=== PATIENT | male | born 1980 | race Caucasian/White ===

== ENCOUNTER 2016-11-08 20:46 | Emergency (ER) | payer OTHER ==
[~2016-11-08] VITALS: Ht 170.2 cm; Wt 72.6 kg
[2016-11-08 21:31] LABS: ABSOLUTE BASOPHIL COUNT 0.1 /CUMM (0.0-0.2); ABSOLUTE EOSINOPHIL COUNT 0.3 /CUMM (0.0-0.7); ABSOLUTE GRANULOCYTE CT 10.7 /CUMM (1.4-6.5); ABSOLUTE LYMPH COUNT 1.4 /CUMM (1.2-3.4); ABSOLUTE MONOCYTE COUNT 0.9 /CUMM (0.10-0.60); BASOPHIL % 0.6 % (0.0-2.0); EOSINOPHIL % 2.1 % (0-5); GRANULOCYTE % 80.5 % (42.2-75.2); HEMATOCRIT 44.1 % (42-52); MEAN CORPUSCULAR HGB 30.1 PG (27.0-31.0); MEAN CORPUSCULAR VOLUME 88.7 FL (80.0-94.0); MEAN PLATELET VOLUME 9.1 FL (7.4-10.4); PLATELET COUNT 312 /CUMM (130-400); RBC DISTRIBUTION WIDTH 12.5 % (11.5-14.5); RED BLOOD CELL CT 4.97 /CUMM (4.70-6.10); WHITE BLOOD CELL COUNT 13.3 /CUMM (4.8-10.8)
--- NOTE | 2016-11-08 21:31 | ED GI/GU/ABDOMINAL COMPLAINT ---
History of Present Illness General Chief Complaint: General Adult Stated Complaint: "THINK I HAVE A KIDNEY STONE" L SIDE PAIN PER PT Source: patient, family Exam Limitations: clinical condition Vital Signs & Intake/Output Vital Signs & Intake/Output Vital Signs Date Time Temp Pulse Resp B/P B/P Pulse O2 O2 Flow FiO2 Mean Ox Delivery Rate 11/08 2309 98.0 82 16 154/91 98 Room Air 11/08 2245 Room Air 11/08 2221 98.5 72 18 152/92 97 Room Air 11/08 2054 97.4 73 18 154/100 97 Room Air ED Intake and Output 11/09 0000 11/08 1200 Intake Total 1000 Output Total Balance 1000 Intake, IV 1000 Patient 160 lb Weight Weight Reported by Patient Measurement Method Allergies Coded Allergies: No Known Allergies (11/08/16) Reconcile Medications Ibuprofen 800 MG TABLET 1 TAB PO TID PRN PAIN Ondansetron (Zofran Odt) 4 MG TAB.RAPDIS 1 TAB PO Q6 PRN NAUSEA Oxycodone HCl/Acetaminophen (Percocet 5-325 MG Tablet) 5 MG-325 MG TABLET 1 TAB PO Q4-6 PRN BREAKTHROUGH PAIN Tamsulosin HCl (Flomax) 0.4 MG CAP.ER.24H 1 CAP PO DAILY KIDNEY STONE Triage Note: PT TO TRIAGE WITH C/O LEFT FLANK PAIN 10/10 AND NAUSEA SINCE 6PM. HX OF KIDNEY STONE. VSS. NO OTHER COMPLAINTS. Triage Nurses Notes Reviewed? yes Onset: Abrupt Duration: hour(s): (FEW) Timing: multiple episodes today Quality/Severity: sharpness, severe Severity Numbers: 10 Location: left flank No Modifying Factors: none Associated Symptoms: nausea/vomiting HPI: 35-year-old healthy male who presents here for chief complaint of sudden onset of severe left-sided flank pain. Positive nausea but no vomiting. Denies any urinary symptoms. He states it feels like a sharp knife stabbing him. Denies any testicular pain or swelling. Denies any penile discharge. History of previous kidney stone which passed on its own many years ago. Denies any abdominal surgeries. Past History Travel History Traveled to [place] past 21 day No Medical History Any Pertinent Medical History? see below for history Renal: nephrolithiasis Surgical History Surgical History: none Psychosocial History What is your primary language Citizen [place] Tobacco Use: Never used Family History Hx Contributory? No Review of Systems Review of Systems Constitutional: Denies: chills, fever. EENTM: Reports: no symptoms. Respiratory: Reports: no symptoms. Cardiovascular: Reports: no symptoms. GI: Reports: abdominal pain, nausea, vomiting. Genitourinary: Reports: frequency. Denies: dysuria. Musculoskeletal: Reports: back pain. Skin: Reports: no symptoms. Neurological/Psychological: Reports: no symptoms. Hematologic/Endocrine: Denies: bruising, bleeding, polyuria, polydipsia. Immunologic/Allergic: Denies: splenectomy. All Other Systems: Reviewed and Negative Physical Exam Physical Exam General Appearance: well developed/nourished, alert, awake, anxious, moderate distress, severe distress Head: atraumatic, normal appearance Eyes: Bilateral: normal appearance, PERRL, EOMI. Ears, Nose, Throat, Mouth: hearing grossly normal, moist mucous membrane Neck: normal inspection, supple, full range of motion Respiratory: normal breath sounds, chest non-tender, no respiratory distress Cardiovascular: regular rate/rhythm Peripheral Pulses: 2+ radial (R), 2+ radial (L) Gastrointestinal: soft, tenderness (LUQ) Back: CVA tenderness (L) Extremities: normal range of motion Neurologic/Psych: no motor/sensory deficits, awake, alert, oriented x 3 Core Measures ACS in differential dx? No Severe Sepsis Present: No Septic Shock Present: No Progress Differential Diagnosis: diverticulitis, ureterolithiasis, UTI/pyelo Plan of Care: Orders Procedure Date/time Status URINALYSIS 11/09 2055 Complete COMPREHENSIVE METABOLIC PANEL 11/09 2055 Complete CBC WITHOUT DIFFERENTIAL 11/09 2055 Complete Laboratory Tests 11/08/162124: Anion Gap 10, Estimated GFR > 60, BUN/Creatinine Ratio 13.6, Glucose 124 H, Calcium 9.6, Total Bilirubin 0.4, AST 31, ALT 44, Alkaline Phosphatase 81, Total Protein 7.7, Albumin 4.5, Globulin 3.2, Albumin/Globulin Ratio 1.4, CBC w Diff NO MAN DIFF REQ, RBC 4.97, MCV 88.7, MCH 30.1, RDW 12.5, MPV 9.1, Gran % 80.5 H , Lymphocytes % 10.3 L, Monocytes % 6.5, Eosinophils % 2.1, Basophils % 0.6, Absolute Granulocytes 10.7 H, Absolute Lymphocytes 1.4, Absolute Monocytes 0.9 H, Absolute Eosinophils 0.3, Absolute Basophils 0.1, PUBS MCHC 34.0, Urinalysis LIGHT H, Urine Color YEL, Urine Clarity CLEAR, Urine pH 6.0, Ur Specific [place] >= 1.030, Urine Protein TRACE H, Urine Ketones NEG, Urine Nitrite NEG, Urine Bilirubin NEG, Urine Urobilinogen 0.2, Ur Leukocyte Esterase NEG, Ur Microscopic SEDIMENT EXAMINED, Urine RBC 50-75 H, Urine Hemoglobin LARGE H, Urine Glucose NEG LABS, URINALYSIS, IV FLUIDS TORADOL, ZOFRAN ORDERED. 21:45 [address]F. MORPHINE ORDERED. CT IMAGING ORDERED. 22:[address] SCAN RESULTS PENDING. (NAILA HENSON,ELIE) Diagnostic Imaging: Viewed by Me: CT Scan. Discussed w/RAD: CT Scan. Radiology Impression: PATIENT: RACHANA GARCIA PRESENT AGE: 35 PATIENT ACCOUNT NO: [id number] : 78 LOCATION: ER ORDERING PHYSICIAN: ELIE YOO MD SERVICE DATE: 11/08/16 EXAM TYPE: CAT - CT ABD & PELVIS W/O IV CONTRAS EXAMINATION: CT ABDOMEN AND PELVIS WITHOUT CONTRAST CLINICAL INFORMATION: Severe left flank pain. COMPARISON: 12/03/2007 TECHNIQUE: Multidetector volumetric imaging was performed from the superior aspect of the liver through the pubic symphysis. Sagittal and coronal reformatted images were obtained on the technologist's workstation. DLP: 284 mGy-cm FINDINGS: LUNG BASES : The visualized lung bases are unremarkable. LIVER, GALLBLADDER, AND BILIARY TREE: The liver is normal in size, shape, and attenuation. No focal hepatic lesion or biliary ductal dilatation is present. The gallbladder is unremarkable with no evidence of radiopaque gallstones, gallbladder wall thickening, or obvious pericholecystic inflammatory changes. PANCREAS: Unremarkable. SPLEEN: Unremarkable. ADRENAL GLANDS: Unremarkable. KIDNEYS AND URETERS: The kidneys are normal in size, shape, and attenuation. There is mild left hydroureteronephrosis. There is a 0.3 cm calculus in the distal left ureter, approximately 0.5 cm proximal to the ureterovesicular junction. No additional calculi are visualized. No perinephric stranding. BLADDER: Unremarkable. GASTROINTESTINAL TRACT: The stomach and small bowel are unremarkable. No dilated loops of bowel or evidence of obstruction. Fecalization of the distal ileum suggests slow transit. No colonic wall thickening or inflammatory change. No free air or free fluid. Normal appendix. ABDOMINAL WALL: Fat-containing bilateral inguinal hernias. LYMPH NODES: Normal. VASCULAR: Unremarkable. PELVIC VISCERA: The prostate and seminal vesicles are unremarkable. OSSEOUS STRUCTURES: No acute or suspicious osseous abnormality. Mild degenerative changes at L4-L5. IMPRESSION: Mild left hydroureteronephrosis with a 0.3 cm distal ureteral obstructing calculus. DICTATED BY: LÁZARO ALLAN MD DATE/TIME DICTATED:2225 LEATHER LEVELER:MAC DATE/TIME TRANSCRIBED:11/08/162225 CONFIDENTIAL, DO NOT COPY WITHOUT APPROPRIATE AUTHORIZATION. <Electronically signed in Other Vendor System> SIGNED BY: LÁZARO ALLAN MD 11/08/16 225 Initial ED EKG: none Departure Departure Time of Disposition: 2300 Disposition: HOME OR SELF CARE Condition: Stable Clinical Impression Primary Impression: Renal colic on left side Referrals: RANCHO HENSON,PINEDA Edouard III (PCP/Family) Additional Instructions: Take the Zofran, ibuprofen, Percocet and Flomax as directed. Please follow-up with urology specialist listed or the one you had previously. Drink plenty of fluids. Urine use the urinary strainer as directed. Return to the ER for any changing or worsening symptoms. Departure Forms: Customer Survey General Discharge Information Prescriptions: Current Visit Scripts Ondansetron (Zofran Odt) 1 TAB PO Q6 PRN NAUSEA #20 TAB Tamsulosin HCl (Flomax) 1 CAP PO DAILY #14 CAP Oxycodone HCl/Acetaminophen (Percocet 5-325 MG Tablet) 1 TAB PO Q4-6 PRN BREAKTHROUGH PAIN #20 TAB Ibuprofen 1 TAB PO TID PRN PAIN #20 TAB
--- NOTE | 2016-11-08 22:50 | CT SCAN REPORT ---
EXAMINATION: CT ABDOMEN AND PELVIS WITHOUT CONTRAST CLINICAL INFORMATION: Severe left flank pain. COMPARISON: 12/03/2007 TECHNIQUE: Multidetector volumetric imaging was performed from the superior aspect of the liver through the pubic symphysis. Sagittal and coronal reformatted images were obtained on the technologist's workstation. DLP: 284 mGy-cm FINDINGS: LUNG BASES: The visualized lung bases are unremarkable. LIVER, GALLBLADDER, AND BILIARY TREE: The liver is normal in size, shape, and attenuation. No focal hepatic lesion or biliary ductal dilatation is present. The gallbladder is unremarkable with no evidence of radiopaque gallstones, gallbladder wall thickening, or obvious pericholecystic inflammatory changes. PANCREAS: Unremarkable. SPLEEN: Unremarkable. ADRENAL GLANDS: Unremarkable. KIDNEYS AND URETERS: The kidneys are normal in size, shape, and attenuation. There is mild left hydroureteronephrosis. There is a 0.3 cm calculus in the distal left ureter, approximately 0.5 cm proximal to the ureterovesicular junction. No additional calculi are visualized. No perinephric stranding. BLADDER: Unremarkable. GASTROINTESTINAL TRACT: The stomach and small bowel are unremarkable. No dilated loops of bowel or evidence of obstruction. Fecalization of the distal ileum suggests slow transit. No colonic wall thickening or inflammatory change. No free air or free fluid. Normal appendix. ABDOMINAL WALL: Fat-containing bilateral inguinal hernias. LYMPH NODES: Normal. VASCULAR: Unremarkable. PELVIC VISCERA: The prostate and seminal vesicles are unremarkable. OSSEOUS STRUCTURES: No acute or suspicious osseous abnormality. Mild degenerative changes at L4-L5. IMPRESSION: Mild left hydroureteronephrosis with a 0.3 cm distal ureteral obstructing calculus.
[2016-11-08] MEDS ORDERED: PERCOCET 5-3251 EACH PO (23:03)
[2016-11-08] MEDS ORDERED: IBUPROFEN800 M1 PO (23:03)
[2016-11-08] MEDS ORDERED: FLOMAX0.4 M1 PO (23:03)
[2016-11-08] MEDS ORDERED: ZOFRAN ODT4 M1 PO (23:03)
[2016-11-08 23:09] VITALS: BP 154/91
== END 2016-11-08 23:44 ==
LOC: ERH 20:46
PROVIDERS: Emergency Medicine
DX: N23 Unspecified renal colic (principal)
CPT/HCPCS: 74176; 81001; 96361; 96374; 96375; J1885; J2405; J2550